=== PATIENT | male | born 1975 | race Asian ===

== ENCOUNTER 2020-06-13 19:34 | Emergency (ER) | payer OTHER ==
[~2020-06-13] VITALS: Ht 165.1 cm; Wt 83.9 kg
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
[2020-06-13 19:50] VITALS: BP 140/95
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
[2020-06-13] MEDS ORDERED: TYLENOL EXTRA500 MG ORAL (20:10)
[2020-06-13] MEDS ORDERED: Tetanus/Diptheria/Pertussis IM ONE (20:15)
[2020-06-13 20:20] VITALS: BP 140/95
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
== END 2020-06-13 20:20 | disposition home or self-care (01) ==
LOC: EMR 20:08
DX: S01.112A Laceration without foreign body of left eyelid and periocular area, initial encounter (principal); Z23 Encounter for immunization; Y04.8XXA Assault by other bodily force, initial encounter; Y92.9 Unspecified place or not applicable; F31.9 Bipolar disorder, unspecified
CPT/HCPCS: 12011; 90471; 90715; Z7502; 99283